=== PATIENT | female | born 1975 | race American Indian/Alaskan Native ===

== ENCOUNTER 2016-11-27 10:45 | Emergency (ER) | payer SELFPAY ==
[2016-11-27 11:26] LABS: Hematocrit 38.9 % (30.3-42.9); Hemoglobin 12.7 gm/dl (10.1-14.3); Mean Corpuscular HGB Conc 33 % (30-34); Mean Corpuscular Hemoglobin 27 pg (28-32); Mean Corpuscular Volume 82 fl (79-97); Platelet Count 203 K/mm3 (140-440); Red Blood Count 4.72 M/mm3 (3.65-5.03); Red Cell Distribution Width 13.3 % (13.2-15.2); White Blood Count 4.3 K/mm3 (4.5-11.0)
[2016-11-27 11:58] LABS: Blastocytes % (Manual) 0 %
[2016-11-27 11:59] LABS: Diff Status Complete; RBC Morphology Normal
[2016-11-27 12:29] LABS: Bilirubin,Urine NEG (Negative); Blood,Urine LG (Negative); Ketones,Urine NEG (Negative); Leukocyte Esterase,Urine TR (Negative); Mucus,Urine FEW /HPF; Nitrite,Urine NEG (Negative); Urobilinogen,Urine < 2.0 mg/dL (<2.0)
[2016-11-27 12:33] LABS: RBC,Urine > 182.0 /HPF (0.0-6.0)
--- NOTE | 2016-11-27 15:51 | Ultrasound Report ---
Abdominal and transvaginal OB ultrasound. At the time of the study, the patient's serum hCG measures 25.4. Findings: There is a linear echogenic structure in the lower uterine segment and proximal cervix consistent with an IUD. There is no evidence of an intrauterine regnancy. No focal uterine abnormalities are seen. The left ovary is normal. There is a complex lesion in the right ovary measuring 2.5 cm in diameter. No fluid is seen within the cul-de-sac. Impression: Abnormally low position of an IUD as detailed above. There is no evidence of an intrauterine at this time.
--- NOTE | 2016-11-27 21:38 | Emergency Department Report ---
ED Female HPI - General Chief complaint: Vaginal Bleeding Stated complaint: VAG BLEED FOR 15 DAYS Time Seen by Provider: 11/27/16 20:16 Source: patient Mode of arrival: Ambulatory Limitations: Language Barrier - History of Present Illness Initial comments: 41-year-old female with a history of hypertension and 2 presents to the hospital complaining of vaginal bleeding 15 days. Patient used to approximate the past per day. No reports of clots. Patient complaining of 3/ 10 lower abdominal pain to triage but denies pain at this time. No nausea, vomiting, fever, dysuria, or lightheadedness. Patient has IUD that was placed about a year and a half ago after her most recent delivery. Her THERMOSTATIC CONTROLS SUPERVISOR doctor is located at [place]. - Related Data Previous Rx's Medication Instructions Recorded Last Taken Type Acetaminophen [Acetaminophen TAB] 500 mg PO Q6HR PRN #20 tablet 11/27/16 Unknown Rx Allergies Allergy/AdvReac Type Severity Reaction Status Date / Time No Known Allergies Allergy Unverified 11/27/16 11:13 ED Review of Systems ROS: Stated complaint: VAG BLEED FOR 15 DAYS Other details as noted in HPI Comment: All other systems reviewed and negative Other: Constitutional: No fevers chills Eyes: No eye pain visual changes ENT: No ear pain or throat pain Neck: Denies pain Respiratory: Denies cough wheezing shortness of breath Cardiovascular: Denies chest pain, palpitations, syncope GI: as per hpi : Denies dysuria Musculoskeletal: Denies back pain Skin: Denies rash, lesions, erythema Neurologic: Denies headache, numbness, weakness Psychiatric: Denies suicidal ideation, hallucinations ED Past Medical Hx - Past Medical History Hx Hypertension: Yes - Surgical History Additional Surgical History: X 2 - Social History Smoking Status: Never Smoker Substance Use Type: None - Medications Home Medications: Home Medications Medication Instructions Recorded Confirmed Last Taken Type Acetaminophen [Acetaminophen TAB] 500 mg PO Q6HR PRN #20 tablet 11/27/16 Unknown Rx ED Physical Exam - General Limitations: Language Barrier - Other Other exam information: General: No limitations, patient is alert in no acute distress Head exam: Atraumatic, normocephalic Eyes exam: Normal appearance ENT: Moist mucous membrane, normal oropharynx Neck exam: Normal inspection, full range of motion, no meningismus nontender Respiratory exam: Clear to auscultation bilateral, no wheezes, rales, crackles Cardiovascular: Normal rate and rhythm, normal heart sounds Abdomen: Soft, nondistended, mild suprapubic tenderness, with normal bowel sounds, no rebound, or guarding Extremity: Full range of motion normal inspection no deformity Back: Normal Inspection, full range of motion, no tenderness Neurologic: Alert, oriented x3, cranial nerves intact, no motor or sensory deficit Psychiatric: normal affect, normal mood Skin: Warm, dry, intact ED Course Vital Signs 11/27/16 11/27/16 11/27/16 11:06 17:42 20:15 Temperature 98.5 F 98.5 F Pulse Rate 57 L 55 L 58 L Respiratory 18 18 18 Rate Blood Pressure 144/90 168/102 Blood Pressure 154/87 [Left] O2 Sat by Pulse 100 100 Oximetry 11/27/16 11/27/16 20:16 21:04 Temperature Pulse Rate 89 Respiratory 18 18 Rate Blood Pressure Blood Pressure 156/87 [Left] O2 Sat by Pulse 98 Oximetry - Consultations Consultation #1: 11/27/16 21:[address] Livingston. Recommends repeat blood work/beta hCG and 48 hours. IUD was also need to be removed as an outpatient ED Medical Decision Making - Lab Data Result diagrams: 11/27/16 11:18 Lab Results 11/27/16 11/27/16 11/27/16 Range/Units 11:18 11:18 11:18 WBC 4.3 L (4.5-11.0) K/mm3 RBC 4.72 (3.65-5.03) M/mm3 Hgb 12.7 (10.1-14.3) gm/dl Hct 38.9 (30.3-42.9) % MCV 82 (79-97) fl MCH 27 L (28-32) pg MCHC 33 (30-34) % RDW 13.3 (13.2-15.2) % Plt Count 203 (140-440) K/mm3 Add Manual Diff Complete Total Counted 100 Seg Neutrophils % Rubber Mold Maker Seg Neuts % (Manual) 38.0 L (40.0-70.0) % Band Neutrophils % 2.0 % Lymphocytes % (Manual) 51.0 H (13.4-35.0) % Reactive Lymphs % (Man) 2.0 % Monocytes % (Manual) 1.0 (0.0-7.3) % Eosinophils % (Manual) 4.0 (0.0-4.3) % Basophils % (Manual) 1.0 (0.0-1.8) % Metamyelocytes % 1.0 % Myelocytes % 0 % Promyelocytes % 0 % Blast Cells % 0 % Nucleated RBC % Not Reportable Seg Neutrophils # Man 1.6 L (1.8-7.7) K/mm3 Band Neutrophils # 0.1 K/mm3 Lymphocytes # (Manual) 2.2 (1.2-5.4) K/mm3 Abs React Lymphs (Man) 0.1 K/mm3 Monocytes # (Manual) 0.0 (0.0-0.8) K/mm3 Eosinophils # (Manual) 0.2 (0.0-0.4) K/mm3 Basophils # (Manual) 0.0 (0.0-0.1) K/mm3 Metamyelocytes # 0.0 K/mm3 Myelocytes # 0.0 K/mm3 Promyelocytes # 0.0 K/mm3 Blast Cells # 0.0 K/mm3 WBC Morphology Not Reportable Hypersegmented Neuts Not Reportable Hyposegmented Neuts Not Reportable Hypogranular Neuts Not Reportable Smudge Cells Not Reportable Toxic Granulation Not Reportable Toxic Vacuolation Not Reportable Dohle Bodies Not Reportable Pelger-Huet Anomaly Not Reportable Errol Rods Not Reportable Platelet Estimate Appears normal Clumped Platelets Not Reportable Plt Clumps, EDTA Not Reportable Large Platelets Not Reportable Giant Platelets Not Reportable Platelet Satelliting Not Reportable Plt Morphology Comment Not Reportable RBC Morphology Normal Dimorphic RBCs Not Reportable Polychromasia Not Reportable Hypochromasia Not Reportable Poikilocytosis Not Reportable Anisocytosis Not Reportable Microcytosis Not Reportable Macrocytosis Not Reportable Spherocytes Not Reportable Pappenheimer Bodies Not Reportable Sickle Cells Not Reportable Target Cells Not Reportable Tear Drop Cells Not Reportable Ovalocytes Not Reportable Helmet Cells Not Reportable Jarrell-Bar [place]unn Bodies Not Reportable [place] Rings Not Reportable [place] Cells Not Reportable Bite Cells Not Reportable Crenated Cell Not Reportable Elliptocytes Not Reportable Acanthocytes (Spur) Not Reportable Rouleaux Not Reportable Hemoglobin C Crystals Not Reportable Schistocytes Not Reportable Malaria parasites Not Reportable Beltran Bodies Not Reportable Hem Pathologist Commnt No HCG, Qual Positive (Negative) HCG, Quant 25.37 H (0-4) mIU/mL Urine Color (Yellow) Urine Turbidity (Clear) Urine pH (5.0-7.0) Ur Specific [place] (1.003-1.030) Urine Protein (Negative) mg/dL Urine Glucose (UA) (Negative) mg/dL Urine Ketones (Negative) mg/dL Urine Blood (Negative) Urine Nitrite (Negative) Urine Bilirubin (Negative) Urine Urobilinogen (<2.0) mg/dL Ur Leukocyte Esterase (Negative) Urine WBC (Auto) (0.0-6.0) /HPF Urine RBC (Auto) (0.0-6.0) /HPF U Epithel Cells (Auto) (0-13.0) /HPF Urine Mucus /HPF Blood Type LUCIEN Antibody Screen 11/27/16 11/27/16 Range/Units 11:32 12:29 WBC (4.5-11.0) K/mm3 RBC (3.65-5.03) M/mm3 Hgb (10.1-14.3) gm/dl Hct (30.3-42.9) % MCV (79-97) fl MCH (28-32) pg MCHC (30-34) % RDW (13.2-15.2) % Plt Count (140-440) K/mm3 Add Manual Diff Total Counted Seg Neutrophils % Seg Neuts % (Manual) (40.0-70.0) % Band Neutrophils % % Lymphocytes % (Manual) (13.4-35.0) % Reactive Lymphs % (Man) % Monocytes % (Manual) (0.0-7.3) % Eosinophils % (Manual) (0.0-4.3) % Basophils % (Manual) (0.0-1.8) % Metamyelocytes % % Myelocytes % % Promyelocytes % % Blast Cells % % Nucleated RBC % Seg Neutrophils # Man (1.8-7.7) K/mm3 Band Neutrophils # K/mm3 Lymphocytes # (Manual) (1.2-5.4) K/mm3 Abs React Lymphs (Man) K/mm3 Monocytes # (Manual) (0.0-0.8) K/mm3 Eosinophils # (Manual) (0.0-0.4) K/mm3 Basophils # (Manual) (0.0-0.1) K/mm3 Metamyelocytes # K/mm3 Myelocytes # K/mm3 Promyelocytes # K/mm3 Blast Cells # K/mm3 WBC Morphology Hypersegmented Neuts Hyposegmented Neuts Hypogranular Neuts Smudge Cells Toxic Granulation Toxic Vacuolation Dohle Bodies Pelger-Huet Anomaly Errol Rods Platelet Estimate Clumped Platelets Plt Clumps, EDTA Large Platelets Giant Platelets Platelet Satelliting Plt Morphology Comment RBC Morphology Dimorphic RBCs Polychromasia Hypochromasia Poikilocytosis Anisocytosis Microcytosis Macrocytosis Spherocytes Pappenheimer Bodies Sickle Cells Target Cells Tear Drop Cells Ovalocytes Helmet Cells Jarrell-Bar [place]unn Bodies [place] Rings [place] Cells Bite Cells Crenated Cell Elliptocytes Acanthocytes (Spur) Rouleaux Hemoglobin C Crystals Schistocytes Malaria parasites Beltran Bodies Hem Pathologist Commnt HCG, Qual (Negative) HCG, Quant (0-4) mIU/mL Urine Color Yellow (Yellow) Urine Turbidity Clear (Clear) Urine pH 7.0 (5.0-7.0) Ur Specific [place] 1.019 (1.003-1.030) Urine Protein 30 mg/dl (Negative) mg/dL Urine Glucose (UA) Neg (Negative) mg/dL Urine Ketones Neg (Negative) mg/dL Urine Blood Lg (Negative) Urine Nitrite Neg (Negative) Urine Bilirubin Neg (Negative) Urine Urobilinogen < 2.0 (<2.0) mg/dL Ur Leukocyte Esterase Tr (Negative) Urine WBC (Auto) 6.0 (0.0-6.0) /HPF Urine RBC (Auto) > 182.0 (0.0-6.0) /HPF U Epithel Cells (Auto) 4.0 (0-13.0) /HPF Urine Mucus Few /HPF Blood Type AB POSITIVE LUCIEN Antibody Screen Negative - Radiology Data Radiology results: report reviewed (transvaginal/ ultrasound: Abnormally low position of the IUD. No IUP. Complex lesion in the right ovary measuring 2.5 cm.) - Medical Decision Making Patient's blood type is AB+ therefore RhoGAM is not needed. Patient is a very low hCG with bleeding 15 days therefore miscarriage is likely. To confirm this suspicion patient will need repeat HCG evaluation in 48 hours. Patient was informed of the importance to having her blood work drawn and follow-up as an outpatient since ectopic cannot be ruled out at this time. Patient provided a copy of her labs and ultrasound report in case she decides to go to another hospital. - Differential Diagnosis anemia, fibroids, DUB, perimenopause, , ectopic, miscarriage Critical Care Time: No Critical care attestation.: If time is entered above; I have spent that time in minutes in the direct care of this critically ill patient, excluding procedure time. ED Disposition Clinical Impression: Vaginal bleeding in , IUD migration Disposition: DISCHARGED TO HOME OR SELFCARE Is pt being admited?: No Does the pt Need Aspirin: No Condition: Stable Instructions: Ectopic (ED), Threatened Miscarriage (ED) Additional Instructions: today your baby normal level (beta hCG) is only 25. Given that you have been bleeding for 15 days it is very likely that you are having a miscarriage. We cannot confirm this until we had a repeat level to see if your hormone level is increasing or decreasing. Increasing number means the baby is still growing. You will need to be closely followed for repeat ultrasound in the future if this is the case to make sure the is in the right place. If the number is decreasing then you are having a miscarriage. You will still need to be followed by your clinical dental technician until this number is negative. Your IUD is not in the right position and will need to be removed by your clinical dental technician doctor. IT IS VERY IMPORTANT THAT YOU HAVE BLOOD REDRAWN IN 48 HRS. This means you need to either return here or go to your clinical dental technician doctor on this wednesday 11/29 for repeat blood work to determine your baby hormone level. you have been given discharge instructions for threatended miscariage and ectopic . Your diagnosis is unclear today as discussed above. Please return if symptoms worsen as indicated on your discharge instructions robby a se ti michelle w la nmal nivo (beta HCG) slman 25. Etandone ke ou te senyen josue 15 barrera li gen anpil chans ke ou ap gen yon foskouch. Nou pa ka konfime sa a jouk nou te gen yon nivo repete yo w si nivo mn ou ap ogmante oswa diminye. Ogmante kantite vle di ti michelle a se toujou ap grandi. Ou pral bezwen yo dwe ak anpil atansyon swiv josue ultrason repete nan garcia barb tonya an si sa a se ka a nan asire w ke gwoss la se nan plas la dwat. Si se nimewo a diminye l sa a ou ap gen yon foskouch. Ou pral toujou bezwen yo dwe ki te swiv pa THERMOSTATIC CONTROLS SUPERVISOR ou jouk nimewo sa a se negatif. Esteril ou se pa nan yon pozisyon nan dwa ak pral bezwen yo dwe retire nan men dokt THERMOSTATIC CONTROLS SUPERVISOR ou yo. Li enptan anpil josue ke ou gen redesign rico NAN 48 dtan. Sa vle di ou bezwen swa retounen isit la oswa juvenal nan dokt THERMOSTATIC CONTROLS SUPERVISOR ou kavin sanmdi sa a 11/29 josue travay rico repete detmine nivo mn tibebe w la. ou te bay enstriksyon egzeyat josue threatended miscariage ak gwoss ektopik. dyagnostik ou se kl robby a km diskite pi ivctorina haynes. Tanpri retounen si sentm haroon pi mal sienna sa endike kavin enstriksyon egzeyat ou Prescriptions: Acetaminophen [Acetaminophen TAB] 500 mg PO Q6HR PRN #20 tablet PRN Reason: Pain Referrals: your, clinical dental technician [Other] - 2-3 Days (2 days) [facility] [Provider Group] - 3-5 Days (2 days ) Time of Disposition: 21:53
[2016-11-27 22:10] VITALS: BP 152/84
== END 2016-11-27 22:18 | disposition home or self-care (01) ==
LOC: ED 10:45
DX: O26.31 Retained intrauterine contraceptive device in pregnancy, first trimester (principal); Z3A.00 Weeks of gestation of pregnancy not specified; O20.9 Hemorrhage in early pregnancy, unspecified
CPT/HCPCS: 36415; 76801; 76817; 81001; 84702; 84703; 85007; 85025; 86850; 86900; 86901; 99284